=== PATIENT | female | born 1995 ===

== ENCOUNTER 2023-08-12 08:22 | Day surgery (SDC) | payer MEDICAID ==
[2023-08-12] VITALS (8 sets, daily range): BP systolic 113–134; BP diastolic 70–97; PULSE 52–68; TEMP 97.3–97.6
[~2023-08-12] VITALS: Ht 162.6 cm; Wt 96.7 kg
[~2023-08-12 08:22] MED LIST: ADDERALL XR25 MG PO; DESYREL 50MG50 MG PO; LEXAPRO20 MG PO; PRIL40 PO; TOPROL XL 50MG50 MG PO; ULTRAM 50MG TAB50 MG PO; WELLBUTRIN XL150 MG PO
[2023-08-12] MEDS ORDERED: QVAR REDIHALE10.6 GM IH (08:55)
[2023-08-12] MEDS ORDERED: PROAIR HFA0.09 MG/AC IH (08:56)
--- NOTE | 2023-08-12 10:08 | NUR ---
PATIENT RETURNED TO ROOM 7 VIA CART, DROWSY BUT ORIENTED X3. BREATHING REGULAR AND UNLABORED ON ROOM AIR. SKIN WARM AND DRY. NURSE HANDOFF COMPLETED IN ROOM WITH REPORT FROM ANN Perdomo CRNA AND OR NURSE. VISIBLE GAURAV WRAP TO RIGHT HAND/WRIST. DRESSING CLEAN, DRY AND INTACT. RIGHT HAND ELEVATED. BILATERAL FINGERS CAPILLARY REFILL <3 SECONDS. BILATERAL BRACHIAL PULSES 2+ REGULAR. PATIENT ABLE TO MOVE BILATERAL FINGERS. PATIENT REPORTS NAUSEA AND PAIN. REQUESTS MEDICATION FOR NAUSEA FIRST. 1016: ZOFRAN ADMINISTERED. 1031: PATIENT ALERT AND ORIENTED, REPORTS INTOLERABLE PAIN TO RIGHT HAND AND WRIST, RATING 7/10. MORPHINE ADMINISTERED. SEE CHART FOR VITAL SIGNS. CALL LIGHT IN REACH.
[2023-08-12] MEDS ORDERED: CEPHALEXIN500 M1 PO (10:10)
[2023-08-12] MEDS ORDERED: NORCO 325 MG-51 TAB PO (10:11)
--- NOTE | 2023-08-12 11:30 | NUR ---
1041: PATIENT REQUESTED ORAL PAIN MEDICATION. SEE EMAR FOR TYLENOL GIVEN. PATIENT HAD KEILA CRACKERS AND JUICE. BOTH FOOD AND DRINK TOLERATED WELL. 1100: PAIN REPORT OF INTOLERABLE 7/10 PAIN TO RIGHT HAND AND WRIST. SEE EMAR FOR FENTANYL ADMINISTERED. 1125: PATIENT CONFIRMS THAT THE FENTANYL HELPED WITH THE PAIN AND REQUESTS ADDITIONAL IV PAIN MEDICATION TO BRING PAIN LEVEL DOWN TO A MORE TOLERABLE LEVEL. SEE EMAR FOR FENTANYL ADMINISTERED. 1130: PATIENT AMBULATED TO RESTROOM WITH STEADY GAIT AND VOIDED WITHOUT DIFFICULTY. 1135: PATIENT AMBULATED BACK TO CART WITH STEADY GAIT. CALL LIGHT IN REACH.
--- NOTE | 2023-08-12 11:58 | NUR ---
0830 Pt ambulatory to bay 7 with a steady gait, breathing even and unlabored. Pt is alert and oriented. Consents reviewed and signed by pt. Pt becan to cough and c/o allergy sx. Requesting a dose of benedryl. Anesthesia provider, Luis Zhao gave verbal order for med. Pt medicated per order. IV established. LR infusing via gravity at KVO. Call light in reach. Warm blanket provided.
--- NOTE | 2023-08-12 12:10 | NUR ---
PATIENT DENIES NAUSEA. TOLERATING FOOD AND DRINK. RATES PAIN TOLERABLE 5/10 TO RIGHT HAND. ICE PRESENT TO RIGHT HAND/WRIST. RIGHT ARM ELEVATED. DENIES ADDITIONAL INTERVENTIONS. 1200: DISCHARGE TEACHING COMPLETED WITH PRINTED EDUCATION AND INSTRUCTIONS SENT HOME WITH PATIENT. FOLLOW UP APPOINTMENT DATE, TIME AND LOCATION COMMUNICATED TO PATIENT. PATIENT VERBALIZED UNDERSTANDING. LEFT HAND IV REMOVED. GAUZE AND COBAN PLACED OVER SITE. PATIENT CHANGED INTO PERSONAL CLOTHING AND DISCHARGED HOME WITH [facility].
== END 2023-08-12 12:10 | disposition home or self-care (01) ==
LOC: SDCO 08:22
DX: G56.01 Carpal tunnel syndrome, right upper limb (principal); K21.9 Gastro-esophageal reflux disease without esophagitis; F17.210 Nicotine dependence, cigarettes, uncomplicated; Z79.899 Other long term (current) drug therapy
CPT/HCPCS: J0665; J0690; J2270; J2405; J2704; J3010; J7120